=== PATIENT | female | born 1985 | race American Indian/Alaskan Native ===

== ENCOUNTER 2018-06-23 17:41 | Emergency (ER) | payer MEDICAID, OTHER ==
[2018-06-23 18:02] VITALS: BP 126/87; PULSE 92; RESP 17; TEMP 97.8; O2SAT 99; BMI 44.9
--- NOTE | 2018-06-23 18:34 | C.PDOC ---
History Of Present Illness Patient is a 33 year old female, with no medical problems, who presents to the ED c/o one week of right ear pain. Patent states that she has taken Amoxicillin for the past 2 days and has been using prescription eye drops for an ear infection without any relief. Denies trauma, bleeding, hearing loss, dizziness, drainage, fever, Time Seen by Provider: 06/23/18 18:01 Chief Complaint (Nursing): ENT Problem History Per: Patient History/Exam Limitations: None Onset/Duration Of Symptoms: Days (one week) Current Symptoms Are (Timing): Still Present Quality (Ear): Pain W/Touch. denies: Discharge Past Medical History Reviewed: Historical Data, Nursing Documentation, Vital Signs Vital Signs: Last Vital Signs Temp 97.8 F 06/23/18 17:52 Pulse 92 H 06/23/18 17:52 Resp 17 06/23/18 17:52 BP 126/87 06/23/18 17:52 Pulse Ox 99 06/23/18 17:52 Primary Care Provider: Brijesh Francisco - Medical History PMH: No Chronic Diseases Surgical History: No Surg Hx Family History: States: No Known Family Hx - Social History Hx Alcohol Use: Yes Hx Substance Use: No - Immunization History Hx Tetanus Toxoid Vaccination: No Hx Influenza Vaccination: No Physical Exam - Physical Exam Appears: Non-toxic, No Acute Distress Skin: Warm, Dry Head: Atraumatic, Normacephalic Eye(s): bilateral: PERRL, EOMI Ear(s): Left: Normal, Right: Other (edematous, pain with pushing of tragus, no mastoid, normal TM) Throat: Other (normal lymphadenopathy) Neck: Normal ROM, No Midline Cervical Tenderness, No Paracervical Tenderness, Supple Neurological/Psych: Oriented x3 ED Course And Treatment O2 Sat by Pulse Oximetry: 99 (on RA) Pulse Ox Interpretation: Normal Disposition - Disposition Referrals: Ramo Fernández MD [Staff Provider] - Disposition: HOME/ ROUTINE Disposition Time: 18:42 Condition: GOOD Additional Instructions: Follow up with the ENT within 1-2 days, Return if worsened Prescriptions: Neomycin/Polymyxin/Hydrocortis [Cortisporin Otic Susp] 3 drop TOP TID #1 bottle Instructions: Outer Ear Infection (DC) Forms: TMMI ([employer] (Georgian) - Clinical Impression Clinical Impression: Otitis externa - PA / [employer] / Resident Statement MD/DO has examined the patient and agrees with the treatment plan. - Scribe Statement The provider has reviewed the documentation as recorded by the Mary Meng
== END 2018-06-23 18:48 | disposition home or self-care (01) ==
LOC: C.ER 17:41
DX: H60.91 Unspecified otitis externa, right ear (principal)